=== PATIENT | female | born 1990 | race Caucasian/White ===

== ENCOUNTER 2016-12-30 11:33 | Emergency (ER) | payer OTHER ==
[~2016-12-30] VITALS: Ht 162.6 cm; Wt 72.7 kg
[~2016-12-30 11:33] MED LIST: PREN1TAB80 PO
[2016-12-30 11:37] VITALS: BP 140/84; PULSE 80; RESP 14; O2SAT 98
[2016-12-30] MEDS ORDERED: ONDA4TAB6 PO (11:42)
--- NOTE | 2016-12-30 11:45 | ED.REPORT ---
HPI- Female Date of Service December 30, 2016 ED Provider: Marcelina Lazar MD The patient is a female who is currently about 14 weeks , who presents to the emergency department complaining of vaginal bleeding. The patient was at work in the hospital when she suddenly felt like she was peeing. She went to the restroom urgently and found that there was blood soaked through her underwear with clots. She has not noticed any pain. She denies dizziness or lightheadedness. She has experienced nausea and vomiting throughout her . Her first went well without any complications. Nursing Notes Stated Complaint: VAGINAL BLEEDING Chief Complaint: & Delivery Nursing Notes Reviewed: Yes Allergies: Coded Allergies: codeine (Unverified Adverse Reaction, Intermediate, Nausea, 03/13/14) Scheduled Vits W-Ca,Fe,FA(<1Mg) ( Vitamins) 1 Each Tablet 1 EACH PO DAILY Scheduled PRN Ondansetron (Zofran) 4 Mg Tablet 4 MG PO Q4H PRN PRN For Nausea General Time Seen by MD: 11:38 Chief Complaint Vaginal bleeding... Hx Obtained From: Patient Arrived By: Walk-in Sudden in Onset?: Yes Onset Occurred: Just prior to arrival Symptom Duration: Since onset Severity: Current: No pain currently Severity: Maximum: No pain : 2 Para: 1 RH Status / Blood Type: Blood Type A Recent Healthcare: No recent doctor visit, No recent hospitalization Similar Sx Previous: No Past Medical History Past Medical History , currently about 14 weeks Family History Noncontributory Smoking History Unknown if Ever Smoker Social History Other Social History: Good social support, , Lives with children, Local resident Occupation Works at [employer] Ambulatory Status Independent Review of Systems GI: Reports: Nausea, Vomiting, Denies: Abdominal pain Female: Reports: , Vaginal bleeding - abnl, Denies: Pelvic pain Neurologic: Denies: Dizziness, Lightheaded Complete sys rev & neg: except as marked. Physical Exam Initial Vital Signs Vital Signs (First) Date Time Temp Pulse Resp B/P Pulse Ox O2 Delivery O2 Flow Rate FiO2 12/30/16 11:37 36.5 80 14 140/84 98 Room Air Initial VS: Reviewed Head / Eyes: Atraumatic, Normocephalic, PERRL ENT: Mucous membranes moist, Conjunctiva normal, No scleral icterus Neck: Supple, Non-tender, Full range of motion Respiratory: Breath sounds normal, Clear to auscultation, No respiratory distress Cardiovascular: Regular rate & rhythm, Heart sounds normal, Intact distal pulses Abdomen / GI: Soft, Non-tender, No guarding, No rebound, No distention Lymphatic: No lymphadenopathy Extremities: Vascular intact, Neuro intact, No swelling, No tenderness Skin: Warm, Dry, No cyanosis Neurologic: Alert, Oriented, Nonfocal Psychiatric: Mood/affect normal, Behavior normal, Normal thought content General/Constitutional: Awake, Alert, Cooperative Interpretation & Diagnostics Bedside ultrasound: Good heart tones at 150 bpm. Formal US: IMPRESSION: 1. Single living intrauterine gestation with age estimated at 15 weeks 0 days. 2. Limited anatomic survey. 3. Sub-chorionic hematoma involving the anterior inferior uterine segment with slight retro-placental extension extending for roughly 3.0 cm. Followup is recommended. Dr. Merissa Oconnell given results at 1403 hrs. 12/30/2016. Dictated by: Bhavin OVALLE Interpreted: Bari Barraza MD on 12/30/2016 at 13 :59 Re-Eval/Medical Decision Source of Hx: Family Re-Evaluation/Progress #1: Time of Eval: 11:50 Re-Evaluation/Progress Note: Completed bedside ultrasound. Re-Evaluation/Progress #2: Time of Eval: 13:14 Re-Evaluation/Progress Note: Rechecked the patient. Discussed formal ultrasound results with the patient and plan for OBGYN consultation. All questions were addressed. Re-Evaluation/Progress #3: Time of Eval: 15:30 Re-Evaluation/Progress Note: Rechecked the patient. Discussed plan for discharge with close outpatient followup. All questions were addressed. Consultation : Referral / Consult Name: Isaias Barber MD Consulted With: Primary care physician Requested Call at: 14:34 Call Returned at: 14:50 Buggy Runner: Will see in office, Agrees with eval, Agrees with plan Note: He would like to see her on Wednesday. She needs to call to set the appointment up. She should be on bed rest and pelvic rest until then. Counseled Regarding: Diagnosis, Lab results, Need for follow-up, When/why to return to ED Discharge & Departure Impression: Primary Impression: Subchorionic hematoma Fetus number: single or unspecified fetus Trimester: second trimester Qualified Code: O41.8X20 - Other specified disorders of amniotic fluid and membranes, second trimester, not applicable or unspecified Additional Impressions: Vaginal bleeding Weeks of gestation: 15 weeks Qualified Code: Z3A.15 - 15 weeks gestation of Disposition: Home Discharge Condition All VS Reviewed: Yes Condition: Stable Additional Instructions: Thank you for entrusting us with your care today. Your ultrasound does show a viable intrauterine . There is also evidence of a subchorionic hematoma. Call Dr. Barber's office today to schedule a followup appointment on Wednesday. You will need to be on bed rest and pelvis rest until you are re-evaluated on Wednesday. You were given a Rhogam injection in the emergency department today. Seek care for severe vaginal bleeding, lightheadedness dizziness, fever, vomiting, or any new or concerning symptoms. Referrals: Isaias Barber MD Attestation Portions of this note were transcribed by Alice Rueda. I, Dr. Lazar personally performed the history, physical exam and medical decision-making; I reviewed and confirmed the accuracy of the information in the transcribed note. Signed by: Prabhakar Tucker, 12/30/2016 at 1535. copies to: Isaias Barber MD, Shawna L MD December 30, 2016 11:45 Alice Rueda December 30, 2016 11:52
[2016-12-30] MEDS ORDERED: Rho(D) Immune Globulin 50 mCg Syringe IM ONE (12:10)
[2016-12-30 13:42] VITALS: BP 114/56; PULSE 61; RESP 14; O2SAT 98
--- NOTE | 2016-12-30 14:04 | DRSVH ---
PROCEDURE: US OB FOLLOW UP GROWTH INDICATIONS: vaginal bleeding OUTSIDE/PRIOR DATING DATA: Last menstrual period (LMP): 09/25/16. LMP-based estimated date of delivery (BRIAN): 07/02/17. First dating scan (date and location): 12/30/16. Estimated date of delivery (BRIAN) from first dating scan: 06/23/17. TECHNIQUE: Real-time scanning was performed of the fetus, with image documentation and biometric measurements. COMPARISON: None. FINDINGS: General: A single living intrauterine gestation is present. Presentation: Variable. Placenta: Placental position posterior. There is subchorionic fluid present noted throughout the ex amination involving the inferior anterior aspect of the placenta suspicious for subchorionic hematoma which appeared to resolve throughout the examination. Within the fundus of the uterus, there appear s to be a prominent placental venous ansari. [employer] Ultrasound Procedure Report Summary Fetus Summary Estimated Gestational Age from first dating scan: 13 weeks, 5 days Estimated Gestational Age from present scan: 15 weeks, 0 days Heart Rate: 151 bpm Findings(Amniotic Sac) Amniotic Fluid Index: Subjectively normal. Biometry BiometryGroup Biparietal Diameter (Mean): 2.83 cm Gestational Age (BPD): 15 weeks, 1 day Head Circumference (Mean): 10.27 cm Gestational Age (HC): 14 weeks, 6 days Abdominal Circumference (Mean): 8.94 cm Gestational Age (AC): 15 weeks, 1 day Cervix Length: Not well seen. Measurement variability in biometric dating: +/- 10 days from 12-20 weeks gestation, +/- 2 weeks from 20-30 weeks gestation, +/- 3 weeks at 30 weeks gestation or more. Other: Not applicable. IMPRESSION: 1. Single living intrauterine gestation with age estimated at 15 weeks 0 days. 2. Limited anatomic survey. 3. Sub-chorionic hematoma involving the anterior inferior uterine segment with slight retro-placental extension extending for roughly 3.0 cm. Followup is recommended. Dr. Merissa Oconnell given results at 1403 hrs. 12/30/2016. Dictated by: Bhavin OVALLE Interpreted: Bari Barraza MD on 12/30/2016 at 13:59 Transcribed by: ARLEY on 12/30/2016 at 14:04 Approved by: Bari Barraza M.D. on 12/30/2016 at 14:26
[2016-12-30 14:39] VITALS: BP 124/46; PULSE 86; O2SAT 98
[2016-12-30 15:51] VITALS: BP 124/46; PULSE 86; RESP 14; O2SAT 98
== END 2016-12-30 15:52 | disposition home or self-care (01) ==
LOC: SED 11:33
DX: O41.8X20 Other specified disorders of amniotic fluid and membranes, second trimester, not applicable or unspecified (principal); Z3A.15 15 weeks gestation of pregnancy; Z88.5 Allergy status to narcotic agent
CPT/HCPCS: 76801; 96372; 99284; J2788